=== PATIENT | male | born 1965 | race Caucasian/White ===

== ENCOUNTER 2019-11-10 02:13 | Emergency (ER) | payer MEDICAID ==
[~2019-11-10] VITALS: Ht 185.4 cm; Wt 89.8 kg
[2019-11-10 02:35] VITALS: BP_SYST 114
--- NOTE | 2019-11-10 02:35 | NUR ---
PT WAITING IN ER LOBBY UNTIL ER BED IS AVAILABLE. V/S STABLE.
--- NOTE | 2019-11-10 04:00 | NUR ---
Called patient in x 3, no answer
--- NOTE | 2019-11-10 04:00 | NUR ---
Patient left without being seen. No further treatment provided. ER MD aware
== END 2019-11-10 04:00 | disposition left against medical advice (07) ==
LOC: SED 02:13
DX: R21 Rash and other nonspecific skin eruption (principal); Z53.21 Procedure and treatment not carried out due to patient leaving prior to being seen by health care provider